=== PATIENT | male | born 1985 | race Asian ===

== ENCOUNTER 2019-08-03 20:22 | Emergency (ER) | payer MEDICARE, MEDICAID ==
[~2019-08-03] VITALS: Ht 167.6 cm; Wt 82.3 kg
[~2019-08-03 20:22] MED LIST: CARB200T6 PO; CLON1TAB12 PO; RISP4 PO
[2019-08-03 20:52] VITALS: BP 125/95
[2019-08-03] MEDS ORDERED: AMOX125T PO (21:01)
[2019-08-03] MEDS ORDERED: METH4TAB16 PO (21:01)
[2019-08-03] MEDS ORDERED: ALBU8HFA PO (21:03)
== END 2019-08-03 21:15 | disposition left against medical advice (07) ==
LOC: EMS 20:23
DX: R05 Cough (principal); Z53.21 Procedure and treatment not carried out due to patient leaving prior to being seen by health care provider